=== PATIENT | male | born 1940 | race Caucasian/White ===

== ENCOUNTER → 2023-09-20 | Outpatient (CLI) | payer MEDICARE ==
[~2023-09-20] MED LIST: AEC81 PO; ALBU6.7H14 IH; ALLO300T2 PO; APIX2.5T PO; ATOR10 PO; CEFD300C3 PO; CETI10TA57 PO; FERR-72 PO; FOLI0.8T2 PO; GLIM1TAB18 PO; MAGN400T40 PO; METO25TA3 PO; OMEP40CA21 PO; SERT-439 PO; TAMS-1 PO
== END | disposition home or self-care (01) ==
LOC: SHCH 10:13
PROVIDERS: ATTEND Internal Medicine Cardiovascular Disease
DX: I34.0 Nonrheumatic mitral (valve) insufficiency (principal); R06.00 Dyspnea, unspecified; E11.9 Type 2 diabetes mellitus without complications; E78.5 Hyperlipidemia, unspecified; I48.91 Unspecified atrial fibrillation
CPT/HCPCS: 93306